=== PATIENT | female | born 1995 | race Caucasian/White ===

== ENCOUNTER 2017-07-07 12:48 | Emergency (ER) | payer OTHER ==
--- NOTE | ~2017-07-07 | US134 ---
[facility] A Service of [facility] RADIOLOGY TEXT RESULTS PATIENT: SIMEON CHASE LOCATION: SED : [birth year] UNIT #: [id number] AGE: [address]: Michael Padilla MD SEX: F ORDER DR: [id number] [address] [id number] [id number] MR#: [id number] Acc #: [id number] NAME: SIMEON CHASE : 1995 SEX: F STUDY DATE/TIME: 07/07/2017 15:15 UNIT: SED ROOM: STUDY DESCRIPTION: US Transvaginal Attending Physician: Michael Padilla M.D. Ordering Physician: Michael Padilla M.D. MEDICAL IMAGING REPORT This report is preliminary unless electronic signature is present. EXAM Transabdominal pelvic ultrasound, 07/07/2017 HISTORY 21-year-old female with pelvic pain and vaginal bleeding today. COMPARISON None FINDINGS The patient refused endovaginal ultrasound. 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 The endometrial echo complex is markedly thickened and echogenic. There are some pockets of fluid noted within the endometrial complex. A clearly defined gestational sac or intrauterine is not seen on today's exam. The findings are nonspecific and could represent a very early normal intrauterine , in progress, or pseudogestational sac from an unseen ectopic . Continued followup with serial beta HCG and ultrasound recommended. Neither ovary is well visualized on the exam. There is a trace amount of free fluid noted in the left adnexa. IMPRESSION 1. Limited examination given patient's refusal for transvaginal study. 2. 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 The endometrial echo complex is markedly thickened with extensive echogenic material as well as some foci of fluid echogenicity. No clearly visible gestational sac or intrauterine . Differential considerations may include very early normal intrauterine , in progress , or pseudogestational sac from an unseen ectopic . Continued followup with serial beta hCG and ultrasound recommended. [facility] A Service of [facility] RADIOLOGY TEXT RESULTS PATIENT: SIMEON CHASE LOCATION: SED : [birth year] UNIT #: [id number] AGE: [address]: Michael Padilla MD SEX: F ORDER DR: 3. Neither ovary is clearly visualized on this transabdominal examination. Trace free fluid noted in the left adnexa. Dictated by... Nazario Benitez M.D. THIS IS AN ELECTRONICALLY VERIFIED REPORT Nazario Benitez M.D. at 07/08/2017 10:40 AM Mahamed TD: 07/08/2017 08:32 JOB #: [id number] MEDICAL IMAGING REPORT Page 1 of 1
[2017-07-07 13:57] LABS: BASOPHIL# 0.1 X10e3 (0-0.3); BASOPHIL% 0.6 % (0-2.5); DIFF IND NO; EOSINOPHIL# 0.2 X10e3 (0-0.7); EOSINOPHIL% 1.7 % (0.0-7.0); HEMATOCRIT 39.9 % (35.0-45.0); HEMOGLOBIN 13.6 gm/dL (12.0-16.0); LYMPHOCYTE# 1.9 X10e3 (1.0-3.5); LYMPHOCYTE% 15.4 % (17.0-45.0); MEAN CELL VOLUME 86.2 FL (83-96); MEAN CORPUSCULAR HEMOGLOBIN 29.4 PG (28-34); MEAN CORPUSCULAR HGB CONC 34.1 g/dL (30-36); MEAN PLATELET VOLUME 9.3 FL (6.5-11.5); MONOCYTE# 0.6 X10e3 (0-1.0); MONOCYTE% 4.7 % (3.0-12.0); NEUTROPHIL# 9.4 X10e3 (1.5-7.1); NEUTROPHIL% 77.6 % (40-75); PLATELET COUNT 223 X10e3 (140-420); RED BLOOD COUNT 4.62 X10e (3.90-5.30); RED CELL DISTRIBUTION WIDTH 14.1 % (11.0-15.5); WHITE BLOOD COUNT 12.1 X10e3 (4.0-10.5)
[2017-07-07 14:18] LABS: ALBUMIN SERUM 4.7 g/dL (3.5-5.0); BILIRUBIN, DIRECT 0.2 mg/dL (0.0-0.2); BILIRUBIN,INDIRECT 0.6 mg/dL (0.0-0.9); BILIRUBIN,TOTAL 0.8 mg/dL (0.2-2.0); BUN/CREATININE RATIO 12.85; CREATININE SERUM 0.7 mg/dL (0.6-1.4); GLOM FILT RATE Estimated 124.7 mL/min (>60); POTASSIUM 3.5 mmol/L (3.5-5.1)
[2017-07-07 16:32] LABS: BASOPHIL% 0.2 % (0-2.5); EOSINOPHIL# 0.1 X10e3 (0-0.7); EOSINOPHIL% 0.5 % (0.0-7.0); HEMATOCRIT 33.8 % (35.0-45.0); LYMPHOCYTE# 1.7 X10e3 (1.0-3.5); LYMPHOCYTE% 10.4 % (17.0-45.0); MEAN CELL VOLUME 85.8 FL (83-96); MEAN CORPUSCULAR HEMOGLOBIN 29.3 PG (28-34); MEAN CORPUSCULAR HGB CONC 34.1 g/dL (30-36); MEAN PLATELET VOLUME 9.4 FL (6.5-11.5); MONOCYTE# 0.6 X10e3 (0-1.0); MONOCYTE% 3.9 % (3.0-12.0); NEUTROPHIL# 13.9 X10e3 (1.5-7.1); PLATELET COUNT 223 X10e3 (140-420); RED BLOOD COUNT 3.94 X10e (3.90-5.30); RED CELL DISTRIBUTION WIDTH 14.1 % (11.0-15.5); WHITE BLOOD COUNT 16.4 X10e3 (4.0-10.5)
[2017-07-07 16:38] LABS: DIFF IND NO; HEMOGLOBIN 11.6 gm/dL (12.0-16.0)
== END 2017-07-07 17:46 | disposition hospice, home (50) ==
LOC: SED 12:48
PROVIDERS: Emergency Medicine
DX: O03.9 Complete or unspecified spontaneous abortion without complication (principal); F31.9 Bipolar disorder, unspecified; F17.210 Nicotine dependence, cigarettes, uncomplicated
CPT/HCPCS: 36415; 76830; 80048; 80076; 84702; 85025; 86900; 86901; 88305; 88342; 96374; 96375; 96376; 99285; J1170; J1885; J2270; J2405; J2590